=== PATIENT | female | born 1955 | race Caucasian/White ===

== ENCOUNTER → 2016-12-26 | Outpatient (CLI) | payer OTHER ==
[~2016-12-26] MED LIST: BUPROPION HCL300 MG PO; BUPROPION XL300 MG PO; JANUMET 50-1,01 EACH PO; KOMBIGLYZE XR 11 TER PO; LAMICTAL XR200 MG PO; LAMOTRIGINE200 MG PO; LEVAQUIN500 MG PO; PANTOPRAZOLE SO40 MG PO; [UNRECOGNIZED DRUG - OTHER] PO
[2016-12-26 13:08] LABS: BUN 19 mg/dL (7-18)
[2016-12-26 13:10] LABS: GFR (ESTIMATED) 85 ML/MIN (59-)
== END ==
LOC: LAB 12:08
PROVIDERS: Internal Medicine Adolescent Medicine
DX: E78.5 Hyperlipidemia, unspecified (principal); E11.9 Type 2 diabetes mellitus without complications